=== PATIENT | male | born 1985 | race Caucasian/White ===

== ENCOUNTER 2016-09-11 08:36 | Emergency (ER) | payer MEDICAID, OTHER ==
[2016-09-11 08:46] VITALS: BP 117/70
[2016-09-11] MEDS ORDERED: diphenhydrAMINE 50 MG/ML SDV IM ONE (08:48)
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
== END 2016-09-11 09:02 | disposition home or self-care (01) ==
LOC: DL.ED 08:36
DX: T63.441A Toxic effect of venom of bees, accidental (unintentional), initial encounter (principal)
CPT/HCPCS: 96372; 99281; J1200

== ENCOUNTER 2016-12-17 09:36 | Emergency (ER) | payer BC, MEDICAID ==
[2016-12-17] MEDS ORDERED: HYDROmorphone 1 MG/ML Syringe IM ONE (09:54)
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
[2016-12-17] MEDS ORDERED: HYDROmorphone 1 MG/ML Syringe IVPUSH ONE ×2 (10:03→10:56)
[2016-12-17 10:24] VITALS: BP 126/83
[2016-12-17 10:28] LABS: CHLORIDE,CL 100 mmol/L (101-111); SODIUM,NA 138 mmol/L (135-145)
[2016-12-17] MEDS ORDERED: Sodium Chloride 0.9% 1,000 ML IV SCH (11:00)
== END 2016-12-17 11:22 ==
LOC: DL.ED 09:36
DX: S82.242A Displaced spiral fracture of shaft of left tibia, initial encounter for closed fracture (principal); S82.432A Displaced oblique fracture of shaft of left fibula, initial encounter for closed fracture; W18.39XA Other fall on same level, initial encounter; Z98.890 Other specified postprocedural states
CPT/HCPCS: 29515; 36415; 73600; 80053; 85025; 85610; 85730; 96361; 96374; 96376; 99285; J1170; J7030; 29505

== ENCOUNTER 2016-12-19 11:09 | Emergency (ER) | payer BC, MEDICAID ==
[2016-12-19 11:31] VITALS: BP 130/83
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
--- NOTE | 2016-12-19 11:58 | CR ---
CLINICAL HISTORY: 31-year-old male with pain right lower extremity who is "post surgery". INTERPRETATION: Evidence of orthopedic procedure (intramedullary sarah anchored proximally and distally with 2 horizontally placed screws, respectively left tibia (bridging and satisfactorily aligning spi ral distal diaphyseal fracture left tibia). Surgical bruce in the skin proximally and distally. Nondisplaced satisfactorily (anatomically) opposed and aligned spiral proximal diaphyseal fracture of the adjacent left fibula. No sign of inflammatory periostitis, other fracture or dislocation and the left knee/ankle joint are symmetrically intact.
== END 2016-12-19 12:20 | disposition home or self-care (01) ==
LOC: DL.ED 11:09
DX: S82.302A Unspecified fracture of lower end of left tibia, initial encounter for closed fracture (principal); S82.832A Other fracture of upper and lower end of left fibula, initial encounter for closed fracture; W19.XXXA Unspecified fall, initial encounter
CPT/HCPCS: 73590-LT; 99283

== ENCOUNTER 2017-08-31 18:59 | Emergency (ER) | payer OTHER, MEDICAID ==
[2017-08-31] MEDS ORDERED: traMADol 50 MG Tab PO ONE (19:00)
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
[2017-08-31] MEDS ORDERED: traMADol 50 MG Tab ONE (21:25)
[2017-08-31 21:32] VITALS: BP 110/62
== END 2017-08-31 21:32 | disposition home or self-care (01) ==
LOC: DL.ED 18:59
DX: M54.5 Low back pain (principal); F17.210 Nicotine dependence, cigarettes, uncomplicated
CPT/HCPCS: 72072; 72100; 73610-RT; 99283; A9270-GY

== ENCOUNTER 2017-11-22 12:52 | Emergency (ER) | payer BC, MEDICAID ==
--- NOTE | 2017-11-22 13:32 | EDM.PDOC ---
ED HPI GENERAL MEDICAL PROBLEM - General Stated Complaint: SICK X 1 WK, FLU, CONGESTION Time Seen by Provider: 11/22/17 13:15 Source of Information: Reports: Patient History Limitations: Reports: No Limitations - History of Present Illness INITIAL COMMENTS - FREE TEXT/NARRATIVE: This 32 yo male patient reports to the ED with intermittent flu like symptoms for the past week. The patient also reports that he may have had a spider bite to his right elbow just prior to symptom onset. The patient reports that he has been draining "puss" out of his right elbow (3-4 times since he notice increased swelling). The patient has also noticed some red areas in his pubic area. The patient reports that he tried to be seen in the clinic, but could not get an appointment until next Sunday. Onset: Unknown/Unsure Duration: Week(s):, Getting Worse, Intermittent Location: Reports: Upper Extremity, Right, Generalized, Other (erythematious lesions in the pubic area) Quality: Reports: Ache, Dull Severity: Moderate Improves with: Reports: None Worsens with: Reports: None Associated Symptoms: Reports: cough w sputum, Fever/Chills, Nausea/Vomiting, Weakness - Related Data Allergies Allergy/AdvReac Type Severity Reaction Status Date / Time No Known Allergies Allergy Verified 08/31/17 19:19 Home Meds: Home Meds . 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 ED EXAM, GENERAL - Physical Exam Exam: See Below Exam Limited By: No Limitations General Appearance: Alert, WD/WN, Moderate Distress Eye Exam: Bilateral Eye: EOMI, Normal Inspection, PERRL Ears: Normal External Exam, Normal Canal, Hearing Grossly Normal, Normal TMs Nose: Normal Inspection, Normal Mucosa, No Blood Throat/Mouth: Normal Inspection, Normal Lips, Normal Teeth, Normal Gums, Normal Oropharynx, Normal Voice, No Airway Compromise Head: Atraumatic, Normocephalic Neck: Normal Inspection, Supple, Non-Tender, Full Range of Motion Respiratory/Chest: No Respiratory Distress, Lungs Clear, Normal Breath Sounds, No Accessory Muscle Use, Chest Non-Tender Cardiovascular: Normal Peripheral Pulses, Regular Rate, Rhythm, No Edema, No Gallop, No JVD, No Murmur, No Rub GI/Abdominal: Normal Bowel Sounds, Soft, Non-Tender, No Organomegaly, No Distention, No Abnormal Bruit, No Mass (Male) Exam: Deferred Rectal (Males) Exam: Deferred Back Exam: Normal Inspection, Full Range of Motion, NT Extremities: Arm Pain (right elbow (minor erythema with no current drainage)) Neurological: Alert, Oriented, CN II-XII Intact, Normal Cognition, Normal Gait, Normal Reflexes, No Motor/Sensory Deficits Psychiatric: Normal Affect, Normal Mood Skin Exam: Erythema (right elbow, and pubic area (no areas appear to have any abscess that can be drained at this time)) Lymphatic: No Adenopathy Course - Vital Signs Last Recorded V/S: Last Vital Signs Temp 35.3 C 11/22/17 13:05 Pulse 103 H 11/22/17 13:05 Resp 16 11/22/17 13:05 BP 129/81 11/22/17 13:05 Pulse Ox 97 11/22/17 13:05 - Orders/Labs/Meds Labs: Laboratory Tests 11/22/17 11/22/17 Range/Units 13:19 13:19 WBC 15.8 H (5.0-10.0) 10^3/uL RBC 5.43 (4.6-6.2) 10^6/uL Hgb 15.9 (14.0-18.0) g/dL Hct 47.0 (40.0-54.0) % MCV 86.6 D (80-100) fL MCH 29.3 (27.0-34.0) pg MCHC 33.8 (33.0-35.0) g/dL Plt Count 178 (150-450) 10^3/uL Neut % (Auto) 61.6 (42.2-75.2) % Lymph % (Auto) 23.5 (20.5-50.1) % [place] % (Auto) 9.8 H (2-8) % Eos % (Auto) 4.8 H (1.0-3.0) % Baso % (Auto) 0.3 (0.0-1.0) % Sodium 136 (135-145) mmol/L Potassium 3.6 (3.6-5.0) mmol/L Chloride 103 (101-111) mmol/L Carbon Dioxide 24.0 (21.0-31.0) mmol/L Anion Gap 12.6 BUN 10 (7-18) mg/dL Creatinine 0.9 (0.6-1.3) mg/dL Est Cr Clr Drug Dosing 119.41 mL/min Estimated GFR (MDRD) > 60 BUN/Creatinine Ratio 11.11 Glucose 115 H (74-105) mg/dL Calcium 8.9 (8.4-10.2) mg/dl Total Bilirubin 0.4 (0.2-1.0) mg/dL AST 30 (10-42) IU/L ALT 29 (10-60) IU/L Alkaline Phosphatase 65 (42-121) IU/L Total Protein 7.8 (6.7-8.2) g/dl Albumin 4.0 (3.2-5.5) g/dl Globulin 3.8 Albumin/Globulin Ratio 1.05 Departure - Departure Time of Disposition: 14:31 Disposition: Home, Self-Care 01 Condition: Fair Clinical Impression: Cellulitis Qualifiers: Site of cellulitis: other site Qualified Code(s): L03.818 - Cellulitis of other sites - Discharge Information *PRESCRIPTION DRUG MONITORING PROGRAM REVIEWED*: Not Applicable *COPY OF PRESCRIPTION DRUG MONITORING REPORT IN PATIENT ROBBIE: Not Applicable Instructions: Cellulitis, Adult, [id number] Forms: ED Department Discharge Care Plan Goals: The patient was advised of the examination and lab results during the visit. The patient was discharged with a script for Clindamycin (300 mg) to take 1 by mouth 4 times per day for 10 days. If the patient has any additional symptoms or concerns, the patient should visit his primary care facility or return to the emergency department.
[2017-11-22 13:44] LABS: ANION GAP 12.6; CHLORIDE,CL 103 mmol/L (101-111); SODIUM,NA 136 mmol/L (135-145)
[2017-11-22 14:47] VITALS: BP 132/82
== END 2017-11-22 14:41 | disposition home or self-care (01) ==
LOC: DL.ED 12:52
DX: L03.113 Cellulitis of right upper limb (principal); L03.818 Cellulitis of other sites
CPT/HCPCS: 36415; 80053; 85025; 87804; 99283

== ENCOUNTER 2020-06-17 17:51 | Emergency (ER) | payer SELFPAY ==
[2020-06-17 19:54] VITALS: BP 118/80; PULSE 109
[2020-06-17] MEDS ORDERED: Bacitracin Oint 1 GM U/D Packet TOP ONE (20:13)
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
[2020-06-17 20:32] LABS: ANION GAP 15.3 mEq/L (7-13); CHLORIDE,CL 104 mmol/L (98-107); SODIUM,NA 139 mmol/L (136-145)
[2020-06-17] MEDS ORDERED: Cephalexin 500 MG Cap PO ONE (20:42)
== END 2020-06-17 20:54 | disposition home or self-care (01) ==
LOC: DL.ED 17:51
DX: L03.113 Cellulitis of right upper limb (principal); Z88.0 Allergy status to penicillin; Z88.1 Allergy status to other antibiotic agents; Z72.0 Tobacco use
CPT/HCPCS: 36415; 80053; 83605; 85025; 87040; 87070; 87077; 99283; A9270

== ENCOUNTER 2020-09-04 00:21 | Emergency (ER) | payer MEDICAID ==
[2020-09-04] MEDS ORDERED: Acetaminophen 325 MG Tab PO ONE (00:47)
[2020-09-04 00:49] VITALS: BP 122/68; PULSE 125
--- NOTE | 2020-09-04 01:03 | EDM.PDOC ---
ED HPI GENERAL MEDICAL PROBLEM - General Chief Complaint: Fever Stated Complaint: CONGESTED,FEVER,SIDES AND BACK BURNING UP Time Seen by Provider: 09/04/20 00:45 Source of Information: Reports: Patient, RN History Limitations: Reports: No Limitations - History of Present Illness INITIAL COMMENTS - FREE TEXT/NARRATIVE: cough congestion with fever 2-3 days. No loss of taste or smell. Reports low COVID risk but not had vaccines. No recent travel. No NVD. Pushing fluids today. Has not taken anything today for fever. [place] SOB tonight.. Remote hx exertional asthma during high school. Right Chest Pain Score (Numeric/FACES): 4 - Related Data Allergies Allergy/AdvReac Type Severity Reaction Status Date / Time sulfamethoxazole Allergy Chest Pain Verified 09/04/20 00:45 [From Bactrim] trimethoprim [From Bactrim] Allergy Chest Pain Verified 09/04/20 00:45 Home Meds: Home Meds . [No Known Home Meds] 06/17/20 [History] Past Medical History - Past Health History Medical/Surgical History: Denies Medical/Surgical History HEENT History: Reports: Impaired Vision Other HEENT History: Has a sore throat today and nasal congestion Cardiovascular History: Reports: None Respiratory History: Reports: None Gastrointestinal History: Reports: None Genitourinary History: Reports: Pyelonephritis Musculoskeletal History: Reports: Fracture Neurological History: Reports: None Psychiatric History: Reports: ADHD, Addiction, Anxiety, Depression Other Psychiatric History: Meth Addiction Endocrine/Metabolic History: Reports: None Hematologic History: Reports: None Immunologic History: Reports: None Oncologic (Cancer) History: Reports: None Dermatologic History: Reports: None - Infectious Disease History Infectious Disease History: Reports: Chicken Pox, Hepatitis C - Past Surgical History Musculoskeletal Surgical History: Reports: Other (See Below) Other Musculoskeletal Surgeries/Procedures:: back surgery kn 2009 L4-5 fx, metal rods in back, left lower leg sarah Social & Family History - Family History Family Medical History: No Pertinent Family History - Tobacco Use Tobacco Use Status *Q: Current Every Day Tobacco User Years of Tobacco use: 15 Packs/Tins Daily: 0.5 Used Tobacco, but Quit: No Second Hand Smoke Exposure: Yes - Caffeine Use Caffeine Use: Reports: Soda - Recreational Drug Use Recreational Drug Use: No - Living Situation & Occupation Living situation: Reports: with Family Occupation: Employed ED ROS GENERAL - Review of Systems Review Of Systems: Comprehensive ROS is negative, except as noted in HPI. ED EXAM, GENERAL - Physical Exam Exam: See Below Exam Limited By: No Limitations General Appearance: Alert, No Apparent Distress Eye Exam: Bilateral Eye: EOMI Ears: Normal External Exam, Hearing Grossly Normal Nose: Normal Inspection Throat/Mouth: Normal Inspection Head: Atraumatic, Normocephalic Neck: Normal Inspection Respiratory/Chest: No Respiratory Distress, Wheezing (coarse bilateral mid to base greaterleft) Cardiovascular: Normal Peripheral Pulses, Tachycardia GI/Abdominal: Normal Bowel Sounds Back Exam: Normal Inspection Extremities: Normal Inspection Neurological: Alert, Oriented, Normal Cognition Psychiatric: Normal Affect Skin Exam: Warm, Dry, Intact Course - Vital Signs Last Recorded V/S: Last Vital Signs Temp 97.8 F 09/04/20 01:35 Pulse 125 H 09/04/20 00:30 Resp 18 09/04/20 00:30 BP 122/68 09/04/20 00:30 Pulse Ox 94 L 09/04/20 00:30 - Orders/Labs/Meds Orders: Active Orders 24 hr Category Date Time Status CULTURE BLOOD [BC] Stat Lab 09/04/20 00:55 Results CULTURE BLOOD [] Stat Lab 09/04/20 01:05 Received CULTURE STREP A CONFIRMATION [] Stat Lab 09/04/20 00:55 Results STREP SCRN A RAPID W CULT CONF [] Stat Lab 09/04/20 00:55 Results Blood Culture x2 Reflex Set [OM.PC] Stat Oth 09/04/20 00:43 Ordered Labs: Laboratory Tests 09/04/20 09/04/20 09/04/20 Range/Units 00:32 00:55 00:55 WBC 20.7 H (5.0-10.0) 10^3/uL RBC 5.28 (4.6-6.2) 10^6/uL Hgb 16.4 D (14.0-18.0) g/dL Hct 48.0 (40.0-54.0) % MCV 90.9 (80-100) fL MCH 31.1 (27.0-34.0) pg MCHC 34.2 (33.0-35.0) g/dL Plt Count 185 (150-450) 10^3/uL Neut % (Auto) 78.5 H (42.2-75.2) % Lymph % (Auto) 11.3 L (20.5-50.1) % [place] % (Auto) 9.8 H (2-8) % Eos % (Auto) 0.2 L (1.0-3.0) % Baso % (Auto) 0.2 (0.0-1.0) % Sodium 136 (136-145) mmol/L Potassium 4.1 (3.5-5.1) mmol/L Chloride 100 (98-107) mmol/L Carbon Dioxide 23 (21-32) mmol/L Anion Gap 17.1 H (7-13) mEq/L BUN 13 (7-18) mg/dL Creatinine 0.93 (0.70-1.30) mg/dL Est Cr Clr Drug Dosing 112.29 mL/min Estimated GFR (MDRD) > 60 BUN/Creatinine Ratio 14.0 (No establ ref range) Glucose 104 H (70-99) mg/dL Lactic Acid (0.4-2.0) mmol/L Calcium 8.2 L (8.5-10.1) mg/dL Total Bilirubin 1.3 H (0.2-1.0) mg/dL AST 132 H (15-37) U/L ALT 221 H (16-63) U/L Alkaline Phosphatase 110 (46-116) U/L C-Reactive Protein 4.1 H (0.0-0.9) mg/dL Total Protein 7.9 (6.4-8.2) g/dL Albumin 3.5 (3.4-5.0) g/dL Globulin 4.4 Albumin/Globulin Ratio 0.8 Amylase 34 (25-115) U/L Lipase 69 L (73-393) U/L Influenza Type A RNA Negative (NEGATIVE) Influenza Type B RNA Negative (NEGATIVE) SARS-CoV-2 RNA (ZACH) Negative (NEGATIVE) 09/04/20 Range/Units 00:55 WBC (5.0-10.0) 10^3/uL RBC (4.6-6.2) 10^6/uL Hgb (14.0-18.0) g/dL Hct (40.0-54.0) % MCV (80-100) fL MCH (27.0-34.0) pg MCHC (33.0-35.0) g/dL Plt Count (150-450) 10^3/uL Neut % (Auto) (42.2-75.2) % Lymph % (Auto) (20.5-50.1) % [place] % (Auto) (2-8) % Eos % (Auto) (1.0-3.0) % Baso % (Auto) (0.0-1.0) % Sodium (136-145) mmol/L Potassium (3.5-5.1) mmol/L Chloride (98-107) mmol/L Carbon Dioxide (21-32) mmol/L Anion Gap (7-13) mEq/L BUN (7-18) mg/dL Creatinine (0.70-1.30) mg/dL Est Cr Clr Drug Dosing mL/min Estimated GFR (MDRD) BUN/Creatinine Ratio (No establ ref range) Glucose (70-99) mg/dL Lactic Acid 1.4 (0.4-2.0) mmol/L Calcium (8.5-10.1) mg/dL Total Bilirubin (0.2-1.0) mg/dL AST (15-37) U/L ALT (16-63) U/L Alkaline Phosphatase (46-116) U/L C-Reactive Protein (0.0-0.9) mg/dL Total Protein (6.4-8.2) g/dL Albumin (3.4-5.0) g/dL Globulin Albumin/Globulin Ratio Amylase (25-115) U/L Lipase (73-393) U/L Influenza Type A RNA (NEGATIVE) Influenza Type B RNA (NEGATIVE) SARS-CoV-2 RNA (ZACH) (NEGATIVE) Meds: Medications Discontinued Medications Generic Name Dose Route Start Last Admin Trade Name Freq PRN Reason Stop Dose Admin Acetaminophen 650 mg 09/04/20 00:47 09/04/20 00:51 Acetaminophen 325 Mg Tab PO 09/04/20 00:48 650 mg NOW ONE Administration Albuterol Confirm 09/04/20 01:39 09/04/20 01:45 Albuterol 6.7 Gm Inhaler Administered 09/04/20 01:40 Not Given Dose 6.7 gm INH .STK-MED ONE Amoxicillin/Clavulanate Potassium 1 tab 09/04/20 01:36 09/04/20 01:43 Amoxicillin/Clavulanate K 875-125 Mg Tab PO 09/04/20 01:37 1 tab ONETIME ONE Administration Departure - Departure Time of Disposition: 01:37 Disposition: Home, Self-Care 01 Condition: Good Clinical Impression: Bronchitis - Discharge Information *PRESCRIPTION DRUG MONITORING PROGRAM REVIEWED*: No *COPY OF PRESCRIPTION DRUG MONITORING REPORT IN PATIENT ROBBIE: No Instructions: Fever, Adult, [id number] Forms: ED Department Discharge Additional Instructions: tylenol 500mg or ibuprofen 400mg every 4 hours as needed for fever/ discomfort augmentin 875/125 one twice daily follow up clinic next week sooner if symptoms worsen albuterol inhaler 2 puffs every 4 hours as needed for cough wheezing encourage fluids diet as tolerated. Sepsis Event Note (ED) - Evaluation Sepsis Screening Result: No Definite Risk - My Orders Last 24 Hours: My Active Orders 09/04/20 00:43 Blood Culture x2 Reflex Set [OM.PC] Stat 09/04/20 00:55 CULTURE BLOOD [BC] Stat CULTURE STREP A CONFIRMATION [RM] Stat STREP SCRN A RAPID W CULT CONF [RM] Stat 09/04/20 01:05 CULTURE BLOOD [BC] Stat - Assessment/Plan Last 24 Hours: My Active Orders 09/04/20 00:43 Blood Culture x2 Reflex Set [OM.PC] Stat 09/04/20 00:55 CULTURE BLOOD [BC] Stat CULTURE STREP A CONFIRMATION [RM] Stat STREP SCRN A RAPID W CULT CONF [RM] Stat 09/04/20 01:05 CULTURE BLOOD [BC] Stat
[2020-09-04 01:13] LABS: CORONAVIRUS COVID-19 NAA NEGATIVE (NEGATIVE)
[2020-09-04 01:20] LABS: ANION GAP 17.1 mEq/L (7-13); CHLORIDE,CL 100 mmol/L (98-107); SODIUM,NA 136 mmol/L (136-145)
[2020-09-04] MEDS ORDERED: Amoxicillin/Clavulanate K 875-125 MG Tab PO ONE (01:36)
[2020-09-04] MEDS ORDERED: Albuterol 6.7 GM Inhaler INH ONE (01:39)
--- NOTE | 2020-09-04 02:49 | CR ---
PROCEDURE INFORMATION: Exam: XR Chest Exam date and time: 09/04/2020 1:00 AM Age: 35 years old Clinical indication: Cough and fever; Patient HX: Prior smoker, no covid vaccination; Additional info: Cough fever, weak, TECHNIQUE: Imaging protocol: XR of the chest. Views: 1 view. COMPARISON: No relevant prior studies available. FINDINGS: Lungs: Unremarkable. No consolidation. Pleural spaces: Unremarkable. No pleural effusion. No pneumothorax. Heart/Mediastinum: Unremarkable. No cardiomegaly. Bones/joints: Unremarkable. IMPRESSION: No acute findings.
== END 2020-09-04 01:49 | disposition home or self-care (01) ==
LOC: DL.ED 00:21
DX: J40 Bronchitis, not specified as acute or chronic (principal); Z72.0 Tobacco use; Z88.2 Allergy status to sulfonamides; Z20.822 Contact with and (suspected) exposure to COVID-19
CPT/HCPCS: 0240U; 36415; 71045; 80053; 82150; 83605; 83690; 85025; 86140; 87040; 87081; 87430; 99283; A9270

== ENCOUNTER 2021-03-07 10:50 | Emergency (ER) | payer MEDICAID ==
[2021-03-07 12:09] VITALS: BP 104/75; PULSE 74
--- NOTE | 2021-03-07 13:20 | CR ---
EXAMINATION: Ribs 2V w Chest Lt SEX: Male AGE: 35 years CLINICAL HISTORY: 35-year-old male left rib pain (fall down stairs). Interpretation:. No sign of left rib fracture or underlying abnormality. 1. 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 2. No left rib fracture, underlying lung contusion, ipsilateral dependent left pleural effusion, or pneumothorax. 3. Normal cardiac silhouette/mediastinal width. No pneumomediastinum. Midline tracheal bronchial airway unremarkable. 4. No foreign bodies. 5. No alveolar consolidation, air bronchograms, or peripheral "groundglass" interstitial lung densities. 6. No suspicious lung nodule, lung mass or hilar lymphadenopathy.
--- NOTE | 2021-03-07 14:20 | EDM.PDOC ---
ED HPI GENERAL MEDICAL PROBLEM - General Chief Complaint: Upper Extremity Injury/Pain Stated Complaint: FELL AND INJURED RIBS Time Seen by Provider: 03/07/21 13:16 Source of Information: Reports: Patient, Old Records, RN, RN Notes Reviewed History Limitations: Reports: No Limitations - History of Present Illness INITIAL COMMENTS - FREE TEXT/NARRATIVE: Pt states he fell backwards down 15 steps about 12 days ago. Pt was going through a [place] products. When door shut he fell down the steps. Abrasion to left posterior head. Steps had metal on edges. Pt complains of left rib pain, hurts to cough. Duration: Day(s): (-) Location: Reports: Chest Quality: Reports: Ache Severity: Moderate Improves with: Reports: Immobilization Worsens with: Reports: Breathing, Movement Associated Symptoms: Reports: No Other Symptoms Left Pain Score (Numeric/FACES): 9 - Related Data Allergies Allergy/AdvReac Type Severity Reaction Status Date / Time sulfamethoxazole Allergy Chest Pain Verified 03/07/21 12:07 [From Bactrim] trimethoprim [From Bactrim] Allergy Chest Pain Verified 03/07/21 12:07 Home Meds: Home Meds Naproxen Sodium [Aleve] 440 mg PO DAILY 03/07/21 [History] Past Medical History - Past Health History Medical/Surgical History: Denies Medical/Surgical History HEENT History: Reports: Impaired Vision Other HEENT History: Has a sore throat today and nasal congestion Cardiovascular History: Reports: None Respiratory History: Reports: None Gastrointestinal History: Reports: None Genitourinary History: Reports: Pyelonephritis Musculoskeletal History: Reports: Fracture Neurological History: Reports: None Psychiatric History: Reports: ADHD, Addiction, Anxiety, Depression Other Psychiatric History: Meth Addiction Endocrine/Metabolic History: Reports: None Hematologic History: Reports: None Immunologic History: Reports: None Oncologic (Cancer) History: Reports: None Dermatologic History: Reports: None - Infectious Disease History Infectious Disease History: Reports: Chicken Pox, Hepatitis C - Past Surgical History Musculoskeletal Surgical History: Reports: Other (See Below) Other Musculoskeletal Surgeries/Procedures:: back surgery kn 2009 L4-5 fx, metal rods in back, left lower leg sarah Social & Family History - Family History Family Medical History: No Pertinent Family History - Tobacco Use Tobacco Use Status *Q: Current Every Day Tobacco User Years of Tobacco use: 15 Packs/Tins Daily: 0.5 - Caffeine Use Caffeine Use: Reports: Coffee, Soda - Recreational Drug Use Recreational Drug Use: Yes Drug Use in Last 12 Months: Yes Recreational Drug Type: Reports: Heroin, Methamphetamine Other Recreational Drug Type: pt sober for 6 mo - Living Situation & Occupation Living situation: Reports: with Family Occupation: Employed Review of Systems - Review of Systems Review Of Systems: Comprehensive ROS is negative, except as noted in HPI. ED EXAM, GENERAL - Physical Exam Exam: See Below Exam Limited By: No Limitations General Appearance: Alert, WD/WN, No Apparent Distress Throat/Mouth: Normal Voice, No Airway Compromise Head: Atraumatic, Normocephalic Neck: Normal Inspection, Supple, Non-Tender, Full Range of Motion Respiratory/Chest: No Respiratory Distress, Lungs Clear, Normal Breath Sounds, No Accessory Muscle Use, Other (left later mid-chest wall tenderness with no visible bruising, swelling, redness, or deformity) GI/Abdominal: Non-Tender Back Exam: No: Vertebral Tenderness Extremities: Normal Inspection, Normal Range of Motion Neurological: Alert, Oriented, No Motor/Sensory Deficits Psychiatric: Normal Mood Skin Exam: Warm, Dry, Intact, Normal Color, No Rash Course - Vital Signs Last Recorded V/S: Last Vital Signs Temp 97.9 F 03/07/21 12:08 Pulse 74 03/07/21 12:08 Resp 18 03/07/21 12:08 BP 104/75 03/07/21 12:08 Pulse Ox 97 03/07/21 12:08 Departure - Departure Time of Disposition: 14:16 Disposition: Home, Self-Care 01 Condition: Good Clinical Impression: Chest wall injury Qualifiers: Encounter type: initial encounter Qualified Code(s): S29.9XXA - Unspecified injury of thorax, initial encounter Fall down stairs Qualifiers: Encounter type: initial encounter Qualified Code(s): W10.8XXA - Fall (on) (from) other stairs and steps, initial encounter - Discharge Information *PRESCRIPTION DRUG MONITORING PROGRAM REVIEWED*: Not Applicable *COPY OF PRESCRIPTION DRUG MONITORING REPORT IN PATIENT ROBBIE: Not Applicable Instructions: Chest Wall Pain Forms: ED Department Discharge Additional Instructions: Use Tylenol (Acetaminophen) and/or Ibuprofen (Motrin/Advil) as needed for rib/chest wall pain. Alternate moist hot packs and ice packs to area of pain as needed. Activity as tolerated. Follow up in clinic in 10 to 12 days for recheck and repeat rib x-ray if not improving as expected. Sepsis Event Note (ED) - Evaluation Sepsis Screening Result: No Definite Risk - Focused Exam Vital Signs: Vital Signs Temp Pulse Resp BP Pulse Ox 03/07/21 12:08 97.9 F 74 18 104/75 97
== END 2021-03-07 14:24 | disposition home or self-care (01) ==
LOC: DL.ED 10:50
DX: S29.9XXA Unspecified injury of thorax, initial encounter (principal); Z72.0 Tobacco use; Z88.2 Allergy status to sulfonamides; W10.9XXA Fall (on) (from) unspecified stairs and steps, initial encounter
CPT/HCPCS: 71101-LT; 99283-25

== ENCOUNTER 2022-07-31 05:32 | Emergency (ER) | payer MEDICAID ==
[2022-07-31] MEDS ORDERED: Ketorolac 10 MG Tab PO ONE (06:49)
== END 2022-07-31 07:38 | disposition home or self-care (01) ==
LOC: DL.ED 05:32
DX: M54.12 Radiculopathy, cervical region (principal); Z88.1 Allergy status to other antibiotic agents
CPT/HCPCS: 72040; 99283; 99284; A9270-GY

== ENCOUNTER 2022-11-22 13:20 | Observation (INO) | payer MEDICAID ==
[2022-11-22] MEDS ORDERED: Albuterol/Ipratropium 3.0-0.5 MG/3 ML Neb Soln NEB PRN (14:05)
[2022-11-22] MEDS ORDERED: Ketorolac 30 MG/ML SDV IVPUSH PRN (14:05)
[2022-11-22] MEDS ORDERED: Polyethylene Glycol 3350 Powder 17 GM Packet PO PRN (14:05)
[2022-11-22] MEDS ORDERED: Ondansetron 4 MG/2 ML SDV IVPUSH PRN (14:05)
[2022-11-22] MEDS ORDERED: Acetaminophen/HYDROcodone 325-10 MG Tab PO PRN (14:05)
[2022-11-22] MEDS ORDERED: HYDROmorphone 0.5 MG/0.5 ML Syringe IVPUSH PRN (14:05)
[2022-11-22] MEDS ORDERED: Magnesium Hydroxide 400 MG/5 ML Susp 30 ML Cup PO PRN (14:05)
[2022-11-22] MEDS ORDERED: Acetaminophen 325 MG Tab PO PRN (14:05)
[2022-11-22] MEDS ORDERED: Temazepam 15 MG Cap PO PRN (14:05)
[2022-11-22] MEDS ORDERED: Sennosides/Docusate Sodium 50-8.6 MG Tab PO PRN (14:05)
[2022-11-22] MEDS ORDERED: Naloxone 2 MG/2 ML Syringe IVPUSH PRN (14:05)
[2022-11-22] MEDS ORDERED: Famotidine 20 MG/2 ML SDV IVPUSH ONE (14:26)
[2022-11-22] MEDS ORDERED: diphenhydrAMINE 50 MG/ML SDV IVPUSH ONE (14:26)
[2022-11-22] MEDS ORDERED: Dexamethasone 4 MG/ML SDV IVPUSH ONE (14:26)
[2022-11-22 14:38] LABS: HEMATOCRIT 44.2 % (40.0-54.0); HEMOGLOBIN 14.9 g/dL (14.0-18.0); MEAN CORPUSCULAR HEMOGLOBIN 30.9 pg (27.0-34.0); MEAN CORPUSCULAR HGB CONC 33.7 g/dL (33.0-35.0); MEAN CORPUSCULAR VOLUME 91.7 fL (80-100); RED BLOOD CELL COUNT 4.82 10^6/uL (4.6-6.2); WHITE BLOOD CELL COUNT,WBC 7.8 10^3/uL (5.0-10.0)
[2022-11-22 14:53] LABS: A/G RATIO 0.9; ALANINE AMINOTRANSFERASE,ALT 32 U/L (16-63); ALBUMIN 3.4 g/dL (3.4-5.0); ALKALINE PHOSPHATASE 64 U/L (46-116); ASPARTATE AMNIOTRANSFERASE,AST 36 U/L (15-37); BILIRUBIN TOTAL 0.4 mg/dL (0.2-1.0); BLOOD UREA NITROGEN,BUN 11 mg/dL (7-18); BUN/CREATININE RATIO 11.1 (No establ ref range); CALCIUM 8.6 mg/dL (8.5-10.1); CARBON DIOXIDE,CO2 30 mmol/L (21-32); CHLORIDE,CL 102 mmol/L (98-107); CREATININE 0.99 mg/dL (0.70-1.30); GLUCOSE RANDOM 97 mg/dL (70-99); MAGNESIUM 1.9 mg/dL (1.8-2.4); PROTEIN TOTAL,TP 7.1 g/dL (6.4-8.2); SODIUM,NA 134 mmol/L (136-145)
[2022-11-22 14:54] LABS: ESTIMATED GFR 99 mL/min (>=60)
[2022-11-22] MEDS: Nicotine 21 MG/24 Hr Patch TRDERM SCH (15:26)
[2022-11-22] MEDS: Saccharomyces Boulardii (Probiotic) 250 MG Cap PO SCH (20:31)
[2022-11-22] MEDS ORDERED: diphenhydrAMINE/Zinc Acetate 2% Crm 28.4 GM Tube TOP PRN (23:58)
[2022-11-23 06:20] LABS: HEMOGLOBIN 14.6 g/dL (14.0-18.0); MEAN CORPUSCULAR HEMOGLOBIN 30.2 pg (27.0-34.0); MEAN CORPUSCULAR HGB CONC 33.2 g/dL (33.0-35.0); MEAN CORPUSCULAR VOLUME 90.9 fL (80-100); RED BLOOD CELL COUNT 4.84 10^6/uL (4.6-6.2); WHITE BLOOD CELL COUNT,WBC 8.1 10^3/uL (5.0-10.0)
[2022-11-23 06:35] LABS: ALBUMIN 3.1 g/dL (3.4-5.0); ANION GAP 10.3 mEq/L (7-13); BILIRUBIN TOTAL 0.3 mg/dL (0.2-1.0); BUN/CREATININE RATIO 15.6 (No establ ref range); C-REACTIVE PROTEIN 3.55 ng/dL (<=0.30); CALCIUM 8.7 mg/dL (8.5-10.1); CREATININE 0.77 mg/dL (0.70-1.30); EST CRCL DRUG DOSING (CG) 132.99 mL/min; POTASSIUM,K 4.3 mmol/L (3.5-5.1); PROTEIN TOTAL,TP 6.9 g/dL (6.4-8.2)
[2022-11-23 06:37] LABS: A/G RATIO 0.82
[2022-11-23] MEDS: Saccharomyces Boulardii (Probiotic) 250 MG Cap PO SCH ×2 (08:53→21:07)
[2022-11-23] MEDS: Famotidine 20 MG Tab PO SCH (08:53)
[2022-11-23] MEDS: Nicotine 21 MG/24 Hr Patch TRDERM SCH (15:58)
[2022-11-24 04:51] LABS: HEMATOCRIT 42.6 % (40.0-54.0); HEMOGLOBIN 14.2 g/dL (14.0-18.0); MEAN CORPUSCULAR HEMOGLOBIN 30.7 pg (27.0-34.0); MEAN CORPUSCULAR HGB CONC 33.3 g/dL (33.0-35.0); RED BLOOD CELL COUNT 4.63 10^6/uL (4.6-6.2); WHITE BLOOD CELL COUNT,WBC 8.5 10^3/uL (5.0-10.0)
[2022-11-24 05:17] LABS: ALBUMIN 2.9 g/dL (3.4-5.0); ANION GAP 9.9 mEq/L (7-13); BILIRUBIN TOTAL 0.2 mg/dL (0.2-1.0); BUN/CREATININE RATIO 16.5 (No establ ref range); C-REACTIVE PROTEIN 1.39 ng/dL (<=0.30); CALCIUM 8.3 mg/dL (8.5-10.1); CREATININE 0.79 mg/dL (0.70-1.30); EST CRCL DRUG DOSING (CG) 129.62 mL/min; POTASSIUM,K 3.9 mmol/L (3.5-5.1); PROTEIN TOTAL,TP 6.5 g/dL (6.4-8.2)
[2022-11-24 05:18] LABS: A/G RATIO 0.81
[2022-11-24] MEDS: Famotidine 20 MG Tab PO SCH (09:15)
[2022-11-24] MEDS: Saccharomyces Boulardii (Probiotic) 250 MG Cap PO SCH (09:15)
[2022-11-24 11:20] VITALS: BP 125/68; PULSE 55
== END 2022-11-24 10:05 | disposition home or self-care (01) ==
LOC: DL.MS 13:46
PROVIDERS: ADMIT Internal Medicine; ATTEND Internal Medicine
DX: L03.314 Cellulitis of groin (principal); D69.6 Thrombocytopenia, unspecified; E87.1 Hypo-osmolality and hyponatremia; R79.82 Elevated C-reactive protein (CRP); R73.9 Hyperglycemia, unspecified; F90.9 Attention-deficit hyperactivity disorder, unspecified type; F41.9 Anxiety disorder, unspecified; F32.A Depression, unspecified; Z88.1 Allergy status to other antibiotic agents; Z79.899 Other long term (current) drug therapy
CPT/HCPCS: 36415; 80053; 80202; 83735; 85027; 86140; 96365; 96366; 96375; 99222; 99232; 99238; A9270-GY; G0378; G0379; J1100; J1200; J3370; J3490; J7050